=== PATIENT | male | born 1985 | race Caucasian/White ===

== ENCOUNTER 2019-05-02 09:02 | Emergency (ER) | payer OTHER ==
[~2019-05-02] VITALS: Ht 167.6 cm; Wt 104.3 kg
[2019-05-02] MEDS ORDERED: IV NORMAL SALINE 1000ML BAG 1,000 ML IV SCH (09:13)
[2019-05-02] MEDS ORDERED: fentaNYL PF VIAL 100 MCG/2 ML VIAL IV PRN (09:15)
--- NOTE | 2019-05-02 09:25 | PHYS DOC ---
Past Medical History Past Medical History seasonal allergies Past Surgical History tonsils Alcohol Use: None Drug Use: None Adult General Chief Complaint Chief Complaint: FLANK PAIN HPI HPI 33-year-old male presenting the emergency department today with left-sided flank pain that started at 4 PM yesterday. It is sharp shooting pain. He was seen his PCP office who noticed he had some blood in the urine is concerned that he may have a kidney stone. The pain radiates into the lower left abdomen. Review of systems is negative for chest pain shortness of breath fevers or chills. All other review of systems is negative. ED course: 33-year-old male presenting with left flank pain. Vitals, afebrile. Pulse mildly elevated at 101. Blood pressure mildly elevated 145. CT shows a 5 mm ureterovesicular junction stone. We'll give the patient Flomax and hydrocodone and refer the patient to urology to follow up in 3-5 days. Review of Systems Review of Systems Current Medications Current Medications Current Medications Medications (Trade) Dose Ordered Sig/Jose Start Time Stop Time Status Last Admin Dose Admin Fentanyl Citrate (Fentanyl 2ml Vial) 50 mcg PRN Q30MIN PRN 05/02/19 09:15 05/03/19 09:00 05/02/19 10:02 50 MCG Ondansetron HCl (Zofran) 4 mg 1X ONCE 05/02/19 09:45 05/02/19 09:46 DC 05/02/19 10:01 4 MG Sodium Chloride 1,000 ml @ 1,000 mls/hr Q1H 05/02/19 09:13 05/02/19 10:12 DC 05/02/19 10:01 1,000 MLS/HR Allergies Allergies Allergies Coded Allergies Type Severity Reaction Last Updated Verified No Known Drug Allergies 05/02/19 No Physical Exam Physical Exam Constitutional: Well developed, well nourished, no acute distress, non-toxic appearance. [] HENT: Normocephalic, atraumatic, bilateral external ears normal, oropharynx moist, no oral exudates, nose normal. [] Eyes: PERRLA, EOMI, conjunctiva normal, no discharge. [] Neck: Normal range of motion, no tenderness, supple, no stridor. [] Cardiovascular:Heart rate regular rhythm, no murmur [] Lungs & Thorax: Bilateral breath sounds clear to auscultation [] Abdomen: Bowel sounds normal, soft, no tenderness, no masses, no pulsatile masses. Nontender without rebound tenderness or guarding. Negative McBurney's point. Negative Dubois sign. Skin: Warm, dry, no erythema, no rash. [] Back: Mild left CVA tenderness. No right CVA tenderness. Extremities: No tenderness, no cyanosis, no clubbing, ROM intact, no edema. [] Neurologic: Alert and oriented X 3, normal motor function, normal sensory function, no focal deficits noted. [] Psychologic: Affect normal, judgement normal, mood normal. [] Current Patient Data Vital Signs Vital Signs Date Time Temp Pulse Resp B/P (MAP) Pulse Ox O2 Delivery O2 Flow Rate FiO2 05/02/19 10:02 16 93 Room Air 05/02/19 09:59 84 118/81 (93) 05/02/19 09:10 97.8 97.8 Lab Values Laboratory Tests Test 05/02/19 09:40 White Blood Count 11.1 x10^3/uL (4.0-11.0) H Red Blood Count 5.66 x10^6/uL (4.30-5.70) Hemoglobin 17.3 g/dL (13.0-17.5) Hematocrit 49.5 % (39.0-53.0) Mean Corpuscular Volume 88 fL (79-100) Mean Corpuscular Hemoglobin 31 pg (25-35) Mean Corpuscular Hemoglobin Concent 35 g/dL (31-37) Red Cell Distribution Width 14.2 % (11.5-14.5) Platelet Count 265 x10^3/uL (140-400) Neutrophils (%) (Auto) 79 % (31-73) H Lymphocytes (%) (Auto) 11 % (24-48) L Monocytes (%) (Auto) 9 % (0-9) Eosinophils (%) (Auto) 1 % (0-3) Basophils (%) (Auto) 1 % (0-3) Neutrophils # (Auto) 8.8 x10^3uL (1.8-7.7) H Lymphocytes # (Auto) 1.2 x10^3/uL (1.0-4.8) Monocytes # (Auto) 1.0 x10^3/uL (0.0-1.1) Eosinophils # (Auto) 0.1 x10^3/uL (0.0-0.7) Basophils # (Auto) 0.1 x10^3/uL (0.0-0.2) Urine Collection Type Void Urine Color Yellow Urine Clarity Clear Urine pH 7.0 Urine Specific [place] 1.020 Urine Protein Negative mg/dL (NEG-TRACE) Urine Glucose (UA) Negative mg/dL (NEG) Urine Ketones (Stick) Negative mg/dL (NEG) Urine Blood Large (NEG) Urine Nitrite Negative (NEG) Urine Bilirubin Negative (NEG) Urine Urobilinogen Dipstick 0.2 mg/dL (0.2 mg/dL) Urine Leukocyte Esterase Negative (NEG) Urine RBC >40 /HPF (0-2) Urine WBC 1-4 /HPF (0-4) Urine Bacteria Few /HPF (0-FEW) Sodium Level 140 mmol/L (136-145) Potassium Level 4.2 mmol/L (3.5-5.1) Chloride Level 104 mmol/L (98-107) Carbon Dioxide Level 26 mmol/L (21-32) Anion Gap 10 (6-14) Blood Urea Nitrogen 12 mg/dL (8-26) Creatinine 1.3 mg/dL (0.7-1.3) Estimated GFR (Cockcroft-Gault) 63.6 Glucose Level 101 mg/dL (70-99) H Calcium Level 8.8 mg/dL (8.5-10.1) Laboratory Tests 05/02/19 09:40 Laboratory Tests 05/02/19 09:40 EKG EKG [] Radiology/Procedures Radiology/Procedures [] Course & Med Decision Making Course & Med Decision Making Pertinent Labs and Imaging studies reviewed. (See chart for details) [] Dragon Disclaimer Dragon Disclaimer This electronic medical record was generated, in whole or in part, using a voice recognition dictation system. Departure Departure Impression: Primary Impression: Left flank pain Additional Impression: Ureterolithiasis Disposition: 01 HOME, SELF-CARE Condition: STABLE Patient Instructions: Flank Pain Additional Instructions: Thank you for allowing us to participate in your care today. Return to the emergency department you have any new or worsening symptoms, or if you are concerned for any reason. Return to emergency department if you have a ny new or concerning symptoms including but not limited to fever, chills, nausea, vomiting, intractable pain, any new rashes, chest pain, shortness of air, uncontrolled bleeding, difficulty breathing, and/or vision loss. Follow up with your primary care physician within 1-2 days. Call your Primary Doctor tomorrow and inform them of your visit today. If you do not have a primary care provider we are happy to provide you with a list of our primary care providers contact information. This condition should be evaluated by your primary care physician and any recommended consulting services for continued management within 2 days after discharge. If at any time, you are having difficulty getting into your primary care doctor or a specialist, return to the emergency department. Scripts Hydrocodone Bit/Acetaminophen (HYDROCODONE-APAP 5-325 ) 1 Tab Tablet 1 TAB PO PRN Q8HRS PRN for sev, #8 TAB 0 Refills Prov: ALICIA BOOTHE MD 05/02/19 Tamsulosin Hcl (FLOMAX) 0.4 Mg Cap.er.24h 1 CAP PO DAILY, #7 CAP 0 Refills Prov: ALICIA BOOTHE MD 05/02/19 Problem Qualifiers ALICIA BOOTHE MD May 02, 2019 09:25
[2019-05-02] MEDS ORDERED: ONDANSETRON PF 4 MG/2 ML VIAL. IV ONE (09:45)
[2019-05-02 09:51] LABS: BASO # 0.1 x10^3/uL (0.0-0.2); BASO % 1 % (0-3); EOS # 0.1 x10^3/uL (0.0-0.7); EOS % 1 % (0-3); HEMATOCRIT 49.5 % (39.0-53.0); HEMOGLOBIN 17.3 g/dL (13.0-17.5); LYMPH # 1.2 x10^3/uL (1.0-4.8); LYMPH % 11 % (24-48); MEAN CORPUSCULAR HEMOGLOBIN 31 pg (25-35); MEAN CORPUSCULAR HGB CONC 35 g/dL (31-37); MEAN CORPUSCULAR VOLUME 88 fL (79-100); MONO % 9 % (0-9); NEUT # 8.8 x10^3uL (1.8-7.7); NEUT % 79 % (31-73); PLATELET COUNT 265 x10^3/uL (140-400); RED BLOOD COUNT 5.66 x10^6/uL (4.30-5.70); RED CELL DISTRIBUTION WIDTH 14.2 % (11.5-14.5); WHITE BLOOD COUNT 11.1 x10^3/uL (4.0-11.0)
[2019-05-02 09:57] LABS: BILIRUBIN,URINE NEGATIVE (NEG); CLARITY,URINE CLEAR; COLOR,URINE YELLOW; NITRITE,URINE NEGATIVE (NEG); PROTEIN,URINE NEGATIVE (NEG-TRACE); UROBILINOGEN,URINE 0.2 mg/dL (0.2 mg/dL)
[2019-05-02 10:03] LABS: CALCIUM 8.8 mg/dL (8.5-10.1); CREATININE 1.3 mg/dL (0.7-1.3); GFR 63.6; POTASSIUM 4.2 mmol/L (3.5-5.1)
[2019-05-02 10:05] LABS: BACTERIA,URINE FEW /HPF (0-FEW); RBC,URINE >40 /HPF (0-2)
--- NOTE | 2019-05-02 10:11 | RAD ---
Examination: CT ABDOMEN PELVIS WO CONTRAST History: Left flank pain Comparison/Correlation: None Findings: Axial images of the abdomen and pelvis were obtained without contrast. Sagittal and coronal reformatted images were provided. Visualized lung bases are clear. Fatty infiltration of the liver is notable. Spleen is unremarkable. Pancreas and adrenal glands are unremarkable. Gallbladder fossa is unremarkable. There is a 0.5 cm diameter right renal upper pole calyceal calculus. Punctate adjacent calculus is also present to it. No right hydronephrosis. Right renal contour is unremarkable. Left renal interpolar region calculus measuring 0.3 cm diameter is present. At the lower pole, there is a 0.5 cm diameter calculus within a calyx. There is left perinephric stranding. Left hydroureter is present due to a 0.5 cm diameter ureterovesical junction calculus. Urinary bladder is otherwise unremarkable. No enlarged abdominal or pelvic lymph nodes. No extraluminal gas. Appendix is normal. No bowel obstruction. Bony structures are unremarkable for the patient's age. Impression: Left ureterovesical junction 0.5 cm diameter obstructive calculus. Associated mild left hydronephrosis and hydroureter. Nonobstructive bilateral renal calculi. Fatty infiltration of the liver. PQRS Compliance Statement: One or more of the following individualized dose reduction techniques were utilized for this examination: 1. Automated exposure control 2. Adjustment of the mA and/or kV according to patient size 3. Use of iterative reconstruction technique Electronically signed by: Rusty Pardo MD (05/02/2019 10:08 AM) [id number]
[2019-05-02] MEDS ORDERED: TAMS0.4C97 PO (10:17)
[2019-05-02] MEDS ORDERED: HYDR-2761 PO (10:17)
[2019-05-02 10:29] VITALS: BP 137/76
== END 2019-05-02 10:39 | disposition home or self-care (01) ==
LOC: ER 09:02
DX: N20.1 Calculus of ureter (principal); R10.9 Unspecified abdominal pain
CPT/HCPCS: 36415; 74176; 80048; 81001; 85025; 96374; 96375; 99285; J2405; J3010; J7030

== ENCOUNTER 2019-10-22 12:06 | Emergency (ER) | payer OTHER ==
[~2019-10-22] VITALS: Ht 167.6 cm; Wt 104.3 kg
[~2019-10-22 12:06] MED LIST: HYDR-2761 PO; TAMS0.4C97 PO
[2019-10-22 12:58] LABS: BILIRUBIN,URINE SMALL (NEG); CLARITY,URINE CLOUDY; COLOR,URINE OTHER; NITRITE,URINE NEGATIVE (NEG); PROTEIN,URINE 100 mg/dL (NEG-TRACE)
[2019-10-22 13:13] LABS: BACTERIA,URINE 0 /HPF (0-FEW); RBC,URINE TNTC /HPF (0-2)
[2019-10-22] MEDS ORDERED: IV NORMAL SALINE 1000ML BAG 1,000 ML IV ONE (13:15)
[2019-10-22] MEDS ORDERED: KETOROLAC 30 MG/ML VIAL. IVP ONE (13:15)
[2019-10-22] MEDS ORDERED: ONDANSETRON PF 4 MG/2 ML VIAL. IV ONE ×2 (13:15→15:30)
[2019-10-22] MEDS ORDERED: MORPHINE SULFATE 10 MG/ML VIAL. IV ONE (13:15)
[2019-10-22 13:18] LABS: BASO % 1 % (0-3); EOS # 0.2 x10^3/uL (0.0-0.7); EOS % 3 % (0-3); HEMATOCRIT 48.2 % (39.0-53.0); HEMOGLOBIN 16.9 g/dL (13.0-17.5); LYMPH # 1.6 x10^3/uL (1.0-4.8); LYMPH % 27 % (24-48); MEAN CORPUSCULAR HEMOGLOBIN 31 pg (25-35); MEAN CORPUSCULAR HGB CONC 35 g/dL (31-37); MEAN CORPUSCULAR VOLUME 88 fL (79-100); MONO # 0.6 x10^3/uL (0.0-1.1); MONO % 10 % (0-9); NEUT # 3.7 x10^3/uL (1.8-7.7); NEUT % 60 % (31-73); PLATELET COUNT 278 x10^3/uL (140-400); RED BLOOD COUNT 5.49 x10^6/uL (4.30-5.70); RED CELL DISTRIBUTION WIDTH 13.2 % (11.5-14.5); WHITE BLOOD COUNT 6.1 x10^3/uL (4.0-11.0)
[2019-10-22 13:24] LABS: CALCIUM 8.6 mg/dL (8.5-10.1); CREATININE 0.9 mg/dL (0.7-1.3); GFR 96.6; POTASSIUM 3.5 mmol/L (3.5-5.1)
[2019-10-22 13:33] LABS: ALBUMIN 4.1 g/dL (3.4-5.0); ALBUMIN/GLOBULIN RATIO 1.3 (1.0-1.7); TOTAL BILIRUBIN 0.5 mg/dL (0.2-1.0); TOTAL PROTEIN 7.2 g/dL (6.4-8.2)
--- NOTE | 2019-10-22 14:07 | RAD ---
CT of the abdomen and pelvis without contrast. 10/22/2019 1:06 PM Indication: Right flank pain Comparison Study: None. Technique: Multidetector CT imaging of the abdomen pelvis is obtained without administration of contrast. Findings: The visualized bilateral lung bases are clear. There is 7 mm stone in the distal right ureter with minimal right hydronephrosis. No other nephrolithiasis is seen on the right. There is a punctate nonobstructing stone within the superior pole of the left kidney. There is a 3 mm nonobstructive stone in the inferior pole left kidney. Cyst in the inferior left kidney is unchanged. Solid viscera of the abdomen otherwise have an unremarkable noncontrast enhanced appearance. The bladder is grossly unremarkable. There is no significant free fluid or free air in the abdomen or pelvis. There is no evidence of bowel obstruction or significant inflammatory change involving the bowel. The appendix is well visualized and grossly normal. There is no acute osseous abnormality identified. Impression: 1. 7 mm stone, distal right ureter with minimal right hydronephrosis 2. Nonobstructing left nephrolithiasis as described. CT DOSING PQRS STATEMENT: One or more of the following individualized dose reduction techniques were utilized for this examination: 1. Automated exposure control 2. Adjustment of the mA and/or kV according to patient size 3. Use of iterative reconstruction technique Electronically signed by: Brody Sheets MD (10/22/2019 2:04 PM) [id number]
[2019-10-22] MEDS ORDERED: HYDROmorphone 2 MG/ML VIAL IV ONE (15:30)
[2019-10-22 15:32] LABS: BARBITURATES NEG (NEG); BENZODIAZEPINES NEG (NEG); CANNABINOIDS NEG (NEG); COCAINE NEG (NEG); METHADONE NEG (NEG); OPIATES NEG (NEG); PHENCYCLIDINE NEG (NEG)
--- NOTE | 2019-10-22 15:37 | PHYS DOC ---
Past Medical History Past Medical History: Kidney Stone Past Surgical History: Tonsillectomy Additional Past Surgical Histo: SHOULDER SURGERY Alcohol Use: None Drug Use: None Adult General Chief Complaint Chief Complaint: FLANK PAIN HPI HPI Patient is a 34 year old male with history of kidney stones who presents to the ED today complaining of 4 out of 10 intermittent sharp right flank pain that has been going on since 11 AM this morning. Patient reports his urine is dark. Denies any nausea vomiting. Denies any fever. Denies any exacerbating or relieving factors. He reports he took Flomax this morning. Review of Systems Review of Systems Constitutional: Denies fever or chills [] Eyes: Denies change in visual acuity, redness, or eye pain [] HENT: Denies nasal congestion or sore throat [] Respiratory: Denies cough or shortness of breath [] Cardiovascular: No additional information not addressed in HPI [] GI: Denies abdominal pain, nausea, vomiting, bloody stools or diarrhea [] : Reports right flank pain. Denies dysuria Musculoskeletal: Denies back pain or joint pain [] Integument: Denies rash or skin lesions [] Neurologic: Denies headache, focal weakness or sensory changes [] All other systems were reviewed and found to be within normal limits, except as documented in this note. Current Medications Current Medications Current Medications Medications (Trade) Dose Ordered Sig/Jose Start Time Stop Time Status Last Admin Dose Admin Hydromorphone HCl (Dilaudid) 1 mg 1X ONCE 10/22/19 15:30 10/22/19 15:31 DC Ketorolac Tromethamine (Toradol 30mg Vial) 30 mg 1X ONCE 10/22/19 13:15 10/22/19 13:16 DC 10/22/19 13:15 30 MG Morphine Sulfate (Morphine Sulfate) 5 mg 1X ONCE 10/22/19 13:15 10/22/19 13:16 DC 10/22/19 13:15 5 MG Ondansetron HCl (Zofran) 4 mg 1X ONCE 10/22/19 15:30 10/22/19 15:31 DC Sodium Chloride 1,000 ml @ 1,000 mls/hr 1X ONCE 10/22/19 13:15 10/22/19 14:14 DC 10/22/19 13:15 1,000 MLS/HR Allergies Allergies Allergies Coded Allergies Type Severity Reaction Last Updated Verified No Known Drug Allergies 05/02/19 No Physical Exam Physical Exam Constitutional: Well developed, well nourished, no acute distress, non-toxic appearance. [] HENT: Normocephalic, atraumatic, bilateral external ears normal, oropharynx moist, no oral exudates, nose normal. [] Eyes: PERRLA, EOMI, conjunctiva normal, no discharge. [] Neck: Normal range of motion, no tenderness, supple, no stridor. [] Cardiovascular:Heart rate regular rhythm, no murmur [] Lungs & Thorax: Bilateral breath sounds clear to auscultation [] Abdomen: Bowel sounds normal, soft, no tenderness, no masses, no pulsatile masses. [] Skin: Warm, dry, no erythema, no rash. [] Back: No tenderness, slight right CVA tenderness. [] Extremities: No tenderness, no cyanosis, no clubbing, ROM intact, no edema. [] Neurologic: Alert and oriented X 3, normal motor function, normal sensory function, no focal deficits noted. [] Psychologic: Affect normal, judgement normal, mood normal. [] Current Patient Data Vital Signs Vital Signs Date Time Temp Pulse Resp B/P (MAP) Pulse Ox O2 Delivery O2 Flow Rate FiO2 10/22/19 13:15 18 96 Room Air 10/22/19 12:45 98.0 102 138/84 (102) 98.0 Lab Values Laboratory Tests Test 10/22/19 12:45 10/22/19 12:55 Urine Collection Type Unknown Urine Color Other Urine Clarity Cloudy Urine pH 6.0 Urine Specific [place] 1.025 Urine Protein 100 mg/dL (NEG-TRACE) Urine Glucose (UA) Negative mg/dL (NEG) Urine Ketones (Stick) Trace mg/dL (NEG) Urine Blood Large (NEG) Urine Nitrite Negative (NEG) Urine Bilirubin Small (NEG) Urine Urobilinogen Dipstick 1.0 mg/dL (0.2 mg/dL) Urine Leukocyte Esterase Small (NEG) Urine RBC Tntc /HPF (0-2) Urine WBC 1-4 /HPF (0-4) Urine Bacteria 0 /HPF (0-FEW) Urine Mucus Slight /LPF Urine Opiates Screen Neg (NEG) Urine Methadone Screen Neg (NEG) Urine Barbiturates Neg (NEG) Urine Phencyclidine Screen Neg (NEG) Urine Amphetamine/Methamphetamine Neg (NEG) Urine Benzodiazepines Screen Neg (NEG) Urine Cocaine Screen Neg (NEG) Urine Cannabinoids Screen Neg (NEG) Urine Ethyl Alcohol Neg (NEG) White Blood Count 6.1 x10^3/uL (4.0-11.0) Red Blood Count 5.49 x10^6/uL (4.30-5.70) Hemoglobin 16.9 g/dL (13.0-17.5) Hematocrit 48.2 % (39.0-53.0) Mean Corpuscular Volume 88 fL (79-100) Mean Corpuscular Hemoglobin 31 pg (25-35) Mean Corpuscular Hemoglobin Concent 35 g/dL (31-37) Red Cell Distribution Width 13.2 % (11.5-14.5) Platelet Count 278 x10^3/uL (140-400) Neutrophils (%) (Auto) 60 % (31-73) Lymphocytes (%) (Auto) 27 % (24-48) Monocytes (%) (Auto) 10 % (0-9) H Eosinophils (%) (Auto) 3 % (0-3) Basophils (%) (Auto) 1 % (0-3) Neutrophils # (Auto) 3.7 x10^3/uL (1.8-7.7) Lymphocytes # (Auto) 1.6 x10^3/uL (1.0-4.8) Monocytes # (Auto) 0.6 x10^3/uL (0.0-1.1) Eosinophils # (Auto) 0.2 x10^3/uL (0.0-0.7) Basophils # (Auto) 0.0 x10^3/uL (0.0-0.2) Sodium Level 140 mmol/L (136-145) Potassium Level 3.5 mmol/L (3.5-5.1) Chloride Level 104 mmol/L (98-107) Carbon Dioxide Level 27 mmol/L (21-32) Anion Gap 9 (6-14) Blood Urea Nitrogen 6 mg/dL (8-26) L Creatinine 0.9 mg/dL (0.7-1.3) Estimated GFR (Cockcroft-Gault) 96.6 BUN/Creatinine Ratio 7 (6-20) Glucose Level 121 mg/dL (70-99) H Calcium Level 8.6 mg/dL (8.5-10.1) Total Bilirubin 0.5 mg/dL (0.2-1.0) Aspartate Amino Transferase (AST) 54 U/L (15-37) H Alanine Aminotransferase (ALT) 133 U/L (16-63) H Alkaline Phosphatase 57 U/L (46-116) Total Protein 7.2 g/dL (6.4-8.2) Albumin 4.1 g/dL (3.4-5.0) Albumin/Globulin Ratio 1.3 (1.0-1.7) Lipase 269 U/L (73-393) Ethyl Alcohol Level < 10 mg/dL (0-10) Laboratory Tests 10/22/19 12:55 Laboratory Tests 10/22/19 12:55 EKG EKG [] Radiology/Procedures Radiology/Procedures []PROCEDURE: CT ABDOMEN PELVIS WO CONTRAST CT of the abdomen and pelvis without contrast. 10/22/2019 1:06 PM Indication: Right flank pain Comparison Study: None. Technique: Multidetector CT imaging of the abdomen pelvis is obtained without administration of contrast. Findings: The visualized bilateral lung bases are clear. There is 7 mm stone in the distal right ureter with minimal right hydronephrosis. No other nephrolithiasis is seen on the right. There is a punctate nonobstructing stone within the superior pole of the left kidney. There is a 3 mm nonobstructive stone in the inferior pole left kidney. Cyst in the inferior left kidney is unchanged. Solid viscera of the abdomen otherwise have an unremarkable noncontrast enhanced appearance. The bladder is grossly unremarkable. There is no significant free fluid or free air in the abdomen or pelvis. There is no evidence of bowel obstruction or significant inflammatory change involving the bowel. The appendix is well visualized and grossly normal. There is no acute osseous abnormality identified. Impression: 1. 7 mm stone, distal right ureter with minimal right hydronephrosis 2. Nonobstructing left nephrolithiasis as described. CT DOSING PQRS STATEMENT: One or more of the following individualized dose reduction techniques were utilized for this examination: 1. Automated exposure control 2. Adjustment of the mA and/or kV according to patient size 3. Use of iterative reconstruction technique Electronically signed by: Brody Mcwilliams MD (10/22/2019 2:04 PM) [id number] DICTATED and SIGNED BY: BRODY MCWILLIAMS MD DATE: 10/22/19 8855 Course & Med Decision Making Course & Med Decision Making Pertinent Labs and Imaging studies reviewed. (See chart for details) This is a 34-year-old male patient with history of kidney stones presenting today complaining of right flank pain that began this morning. Urine positive for large amount of blood, small amount of leukocytes. CBC with no acute findings, CMP with AST of 54, ALT 133, patient has no right upper quadrant or left upper quadrant pain CT of the abdomen and pelvic was noted for a 7 mm stone, distal right ureter with minimal right hydronephrosis and a nonobstructing left nephrolithiasis Talked to patient about admission considering we have no urologist in this hospital patient will have to be admitted in a different hospital. Patient himself reports he has passed a 6 mm stone and would like to go home and try to pass this stone. Patient was discharged to home with Flomax, Cipro, hydrocodone and Zofran. His pain is well controlled in the ED. Instructed to return to the ED at any point symptoms worsen. Instructed to follow-up with the urologist of his own choice. Dragon Disclaimer Dragon Disclaimer This electronic medical record was generated, in whole or in part, using a voice recognition dictation system. Departure Departure Impression: Primary Impression: Kidney stone Additional Impression: Pyelonephritis Disposition: 01 HOME, SELF-CARE Condition: STABLE Referrals: UNKNOWN PCP NAME (PCP) Follow-up with the urologist of your chest in 1-3 days Patient Instructions: Kidney Stones, [id number], Pyelonephritis, Adult Additional Instructions: You were seen in the emergency room and noted to have kidney stones. One is in the right distal ureter approximately 7 mm and the other one is in the left kidney. You also have small infection in your urine. We put you on antibiotics, pain medicines and Flomax. Take them as prescribed. Please follow-up with any urologist of your choice. [facility] does not have a urologist. Please return to the emergency room at any point your symptoms worsen. Scripts Ondansetron (ONDANSETRON ODT) 4 Mg Tab.rapdis 1 TAB PO PRN Q6-8HRS, #16 TAB Prov: MUTUNGA,DENISE FINANCIAL ANALYST 10/22/19 Naproxen (NAPROXEN) 500 Mg Tablet 1 TAB PO BID for pain, #20 TAB 0 Refills Prov: DENISE ADAMS APRN 10/22/19 Hydrocodone Bit/Acetaminophen (HYDROCODONE-APAP 7.5-325 ) 1 Tab Tablet 1 TAB PO PRN Q6HRS PRN for PAIN, #30 TAB 0 Refills Prov: DENISE ADAMS APRN 10/22/19 Ciprofloxacin Hcl (CIPRO) 500 Mg Tablet 1 TAB PO BID for 7 Days, #14 TAB 0 Refills Prov: DENISE ADAMS APRN 10/22/19 Tamsulosin Hcl (FLOMAX) 0.4 Mg Cap.er.24h 1 CAP PO DAILY, #7 CAP 0 Refills Prov: DENISE ADAMS APRN 10/22/19 Problem Qualifiers DENISE ADAMS APRN Oct 22, 2019 15:37
[2019-10-22 15:42] LABS: AMPHETAMINE/METHAMPHETAMINE NEG (NEG)
[2019-10-22] MEDS ORDERED: CIPR500T94 PO (15:54)
[2019-10-22] MEDS ORDERED: TAMS0.4C97 PO (15:54)
[2019-10-22] MEDS ORDERED: NAPR-514 PO (15:54)
[2019-10-22] MEDS ORDERED: ONDA4TAB12 PO (15:54)
[2019-10-22] MEDS ORDERED: HYDR-2765 PO (15:54)
[2019-10-22 16:05] VITALS: BP 126/81
== END 2019-10-22 16:05 | disposition home or self-care (01) ==
LOC: ER 12:06
DX: N13.2 Hydronephrosis with renal and ureteral calculous obstruction (principal); N12 Tubulo-interstitial nephritis, not specified as acute or chronic; R10.9 Unspecified abdominal pain; Z87.442 Personal history of urinary calculi; Z90.89 Acquired absence of other organs; Z98.890 Other specified postprocedural states; Z79.899 Other long term (current) drug therapy
CPT/HCPCS: 36415; 74176; 80053; 80307; 81001; 83690; 85025; 87086; 96374; 96375; 96376; 99285; G0480; J1170; J1885; J2270; J2405; J7030

== ENCOUNTER 2021-02-01 11:26 | Emergency (ER) | payer OTHER ==
[~2021-02-01] VITALS: Ht 167.6 cm; Wt 106.8 kg
[~2021-02-01 11:26] MED LIST changes: +CIPR500T94 PO; +HYDR-2765 PO; +NAPR-514 PO; +ONDA4TAB12 PO
[2021-02-01 11:28] VITALS: BP 151/78
[2021-02-01] MEDS ORDERED: LIDOCAINE 1% PF 2 ML VIAL. INJ ONE (11:45)
--- NOTE | 2021-02-01 11:52 | ED.ADGEN ---
Past Medical History Past Medical History: Kidney Stone Past Surgical History: Tonsillectomy Additional Past Surgical Histo: SHOULDER SURGERY Smoking Status: Never Smoker Alcohol Use: Rarely Drug Use: None General Adult EDM: Chief Complaint: LACERATION/AVULSION HPI: HPI: Patient is a 35 year old male who presents emergency department with complaints of a laceration over the palmar aspect of his left index finger over the DIP. Patient reports he was using a tool to whittle away wood on the door frame when he accidentally cut himself. Patient denies any decreased range of motion, decreased sensation, numbness, tingling, or weakness of the affected digit. Patient is dominantly right-handed. He states that his last tetanus shot was in June 2020 at [facility]. He currently denies any pain. Review of Systems: Review of Systems: Complete ROS is negative unless otherwise noted in HPI. Current Medications: Current Medications Medications (Trade) Dose Ordered Sig/Jose Start Time Stop Time Status Last Admin Dose Admin Lidocaine HCl (Xylocaine-Mpf 1% 2ml Vial) 4 ml 1X ONCE 02/01/21 11:45 02/01/21 11:46 DC 02/01/21 11:51 4 ML Allergies: Allergies: Allergies Coded Allergies Type Severity Reaction Last Updated Verified No Known Drug Allergies 05/02/19 No Physical Exam: PE: See Above Constitutional: Well developed, well nourished, no acute distress, non-toxic appearance, obese HENT: Normocephalic, atraumatic, bilateral external ears normal, nose normal. [] Eyes: PERRLA, EOMI, conjunctiva normal, no discharge. [] Neck: Normal range of motion, no stridor. [] Cardiovascular:Heart rate regular rhythm Lungs & Thorax: Respirations even and unlabored, no retractions, no respiratory distress Skin: Warm, dry, no erythema, no rash; 1 cm horizontal laceration to the palmar aspect of the left second digit over the DIP, no visible foreign body, bleeding controlled by bandage in place [] Extremities: Left index finger: No cyanosis, full extension and flexion, normal sensation, ROM intact, no edema. [] Neurologic: Alert and oriented X 3, no focal deficits noted. [] Psychologic: Affect normal, judgement normal, mood normal. [] Current Patient Data: Vital Signs: Vital Signs Date Time Temp Pulse Resp B/P (MAP) Pulse Ox O2 Delivery O2 Flow Rate FiO2 02/01/21 11:28 98.1 75 16 151/78 (102) 96 Room Air 98.1 EKG: EKG: [] Heart Score: C/O Chest Pain: No Risk Factors: Risk Factors: DM, Current or recent (<one month) smoker, HTN, HLP, family history of CAD, obesity. Risk Scores: Score 0 - 3: 2.5% MACE over next 6 weeks - Discharge Home Score 4 - 6: 20.3% MACE over next 6 weeks - Admit for Clinical Observation Score 7 - 10: 72.7% MACE over next 6 weeks - Early Invasive Strategies Radiology/Procedures: Radiology/Procedures: Laceration Repair by me: Anesthesia: 1% lidocaine locally Location: Left index finger Tendon/Joint/Nerves: No injury Foreign body: None detected after copious irrigation and exploration with NS and chlorhexidine Technique: 3 simple Interrupted Sutures with 4-0 Ethilon Complexity: No subcutaneous sutures/mucosal repair/edge excision Post Closure Length: 1.5 Patient's bleeding was easily controlled in the department and there is no indication of anemia. No evidence of compartment syndrome, neurologic injury, vascular injury, open joint, tendon laceration, or foreign body. Patient is appropriate for outpatient follow up. [] [] Course & Med Decision Making: Course & Med Decision Making Pertinent Labs and Imaging studies reviewed. (See chart for details) 35-year-old male presented to emergency department with left index finger laceration, wound repair as documented above. Patient's tetanus status was up-to-date. Prescription written for Keflex 500 p.o. twice daily x7 days for prophylaxis. Patient instructed to return in 10 to 14 days to have sutures removed. Splint applied by nurse prior to discharge. Patient verbalized an understanding of home care, medications, follow-up, and return to ED instructions and was in agreement with the plan of care. [] Dragon Disclaimer: Fernando Disclaimer: This electronic medical record was generated, in whole or in part, using a voice recognition dictation system. Departure Departure Impression: Primary Impression: Laceration of left index finger w/o foreign body w/o damage to nail Disposition: 01 DC HOME SELF CARE/HOMELESS Condition: STABLE Referrals: UNKNOWN PCP NAME (PCP) Patient Instructions: Fingertip Laceration Additional Instructions: Fill the prescription and use it as directed. Wear the splint that was applied until sutures have been removed. Keep the affected area clean and dry. You may take Tylenol or ibuprofen as needed for pain. Keep the dressing that was placed today on for 24 hours then change the dressing twice a day and clean with soap and water. Follow-up with your primary care doctor, or return to the emergency room in 10-14 days to have the sutures removed, sooner if you develop signs of infection including: redness, warmth, drainage, or a fever. Scripts Cephalexin (CEPHALEXIN) 500 Mg Tablet 1 TAB PO BID for 7 Days, #14 TAB 0 Refills Prov: ADRIANE KOHLER APRN 02/01/21 Splinting Splinting : Location: L index finger Pre-Made Type: metal (Finger splint) Pre-Proc Neuro Vasc Exam: normal Post-Proc Neuro Vasc Exam: unchanged from pre-exam Problem Qualifiers Primary Impression: Laceration of left index finger w/o foreign body w/o damage to nail Encounter type: initial encounter Qualified Codes: S61.211A - Laceration without foreign body of left index finger without damage to nail, initial encounter ADRIANE KOHLER APRN Feb 01, 2021 11:52
[2021-02-01] MEDS ORDERED: CEPH500T PO (12:20)
== END 2021-02-01 12:23 | disposition home or self-care (01) ==
LOC: ER 11:26
DX: S61.211A Laceration without foreign body of left index finger without damage to nail, initial encounter (principal); Z87.442 Personal history of urinary calculi; Z90.89 Acquired absence of other organs; Z98.890 Other specified postprocedural states; Y29.XXXA Contact with blunt object, undetermined intent, initial encounter; Y93.89 Activity, other specified; Y92.89 Other specified places as the place of occurrence of the external cause; Y99.8 Other external cause status
CPT/HCPCS: 12001; 99283; J3490